=== PATIENT | female | born 1970 | race African-American/Black ===

== ENCOUNTER → 2016-09-17 | Outpatient (CLI) | payer BC ==
[2015-06-23 00:20] VITALS: BP 178/85
--- NOTE | 2016-09-17 10:13 | RAD ---
DATE: September 17, 2016 EXAM: MAMMO JOCE SCREENING BILATERAL HISTORY: Routine screening. COMPARISON: None. Baseline examination 46-year-old. TECHNIQUE: 2D digital CC and MLO views were obtained. 3D tomosynthesis imaging was performed in the CC and MLO projections. This study was interpreted with the benefit of Computerized Aided Detection (CAD). FINDINGS: The breast parenchyma is heterogeneously dense, category C, which may obscure small masses. There is no area of architectural distortion. There is a 5 mm nodule on right MLO tomosynthesis image 11, 7-cm from the nipple. This is lateral at the nipple line, 9:00 position. There are no suspicious groupings of microcalcifications IMPRESSION: Small nodule in the outer right breast for which ultrasound would be recommended. BI-RADS CATEGORY: 0 INCOMPLETE: NEEDS ADDITIONAL IMAGING EVALUATION/COMPARISON WITH PRIOR STUDIES RECOMMENDED FOLLOW-UP: ADD ADDITIONAL IMAGING PQRS compliance statement: Patient information was entered into a reminder system with a target due date for the next mammogram. Mammography is a sensitive method for finding small breast cancers, but it does not detect them all and is not a substitute for careful clinical examination. A negative mammogram does not negate a clinically suspicious finding and should not result in delay in biopsying a clinically suspicious abnormality. "Our facility is accredited by the [employer] Mammography Program."
== END | disposition home or self-care (01) ==
LOC: MAMMO 08:37
PROVIDERS: ATTEND Family Medicine
DX: Z12.31 Encounter for screening mammogram for malignant neoplasm of breast (principal)
CPT/HCPCS: 77063; G0202; 77067

== ENCOUNTER → 2016-09-24 | Outpatient (CLI) | payer BC ==
[2015-06-23 00:20] VITALS: BP 178/85
--- NOTE | 2016-09-24 10:01 | RAD ---
Right breast ultrasound, 09/24/2016: History: Breast nodule On the screening tomograms of 09/17/2016 a small smooth nodule was identified at approximately the 9:00 location. A targeted ultrasound exam of the right breast was performed from the 7:00 to 10:00 locations. Heterogeneous fibroglandular shadows are present. No cystic or solid breast mass is seen. No sonographic correlate for the mammographic finding was identified. IMPRESSION: The targeted right breast ultrasound did not demonstrate the small nodule seen on the mammograms. It has a smooth benign appearance mammographically. Mammographic surveillance beginning with 3-D right mammography in 6 months is suggested. BI-RADS 3-probably benign findings
== END | disposition home or self-care (01) ==
LOC: US 09:06
PROVIDERS: ATTEND Family Medicine
DX: R92.8 Other abnormal and inconclusive findings on diagnostic imaging of breast (principal)
CPT/HCPCS: 76641

== ENCOUNTER → 2017-03-27 | Outpatient (CLI) | payer BC ==
[2015-06-23 00:20] VITALS: BP 178/85
--- NOTE | 2017-03-27 10:20 | RAD ---
DATE: 03/27/2017 EXAM: MAMMO JOCE DIAG RT HISTORY: Follow-up breast nodule COMPARISON: 09/17/2016 This study was interpreted with the benefit of Computerized Aided Detection (CAD). The breast parenchyma is heterogeneously dense, which could reduce sensitivity of mammography. Breast parenchyma level C. FINDINGS: 2-D and 3-D tomosynthesis imaging of the right breast was performed. The tiny nodule seen posteriorly in the right breast on the oblique tomogram of the previous study is less clearly defined on the current exam. This opacity has not increased in size. No other unusual breast densities are seen. No suspicious microcalcifications are evident. IMPRESSION: Stable tiny right breast nodule. Follow-up bilateral 3-D mammograms in 6 months and then at yearly intervals is suggested. BI-RADS CATEGORY: 3 PROBABLY BENIGN FINDING(S)-SHORT INTERVAL FOLLOW-UP SUGGESTED RECOMMENDED FOLLOW-UP: 6M 6 MONTH FOLLOW-UP PQRS compliance statement: Patient information was entered into a reminder system with a target due date for the next mammogram. Mammography is a sensitive method for finding small breast cancers, but it does not detect them all and is not a substitute for careful clinical examination. A negative mammogram does not negate a clinically suspicious finding and should not result in delay in biopsying a clinically suspicious abnormality. "Our facility is accredited by the [employer] Mammography [employer]."
== END | disposition home or self-care (01) ==
LOC: MAMMO 09:22
PROVIDERS: ATTEND Family Medicine
DX: N63 Unspecified lump in breast (principal)
CPT/HCPCS: G0206; G0279; 77061; 77065

== ENCOUNTER → 2017-10-19 | Outpatient (CLI) | payer BC, OTHER ==
[2015-06-23 00:20] VITALS: BP 178/85
--- NOTE | 2017-10-19 13:27 | RAD ---
DATE: 10/19/2017 EXAM: MAMMO JOCE ANNA WOOAT, BREAST LEFT HISTORY: Follow-up right breast nodule COMPARISON: 03/27/2017, 09/17/2016 This study was interpreted with the benefit of Computerized Aided Detection (CAD). The breast parenchyma is heterogeneously dense, which could reduce sensitivity of mammography. Breast parenchyma level C. FINDINGS: 2-D and 3-D tomosynthesis imaging was performed in CC and MLO projections. No suspicious right breast nodule is currently seen. On left oblique tomogram image #41 a small, smooth 5 mm nodule is evident in the left breast just inferior and medial to the midline. In retrospect this was present on the 09/17/2016 study and measured 4 mm at that time. No other new or enlarging breast densities are seen. No suspicious microcalcifications are evident. Left breast ultrasound, 10/19/2017: A targeted ultrasound exam of the central aspect of the breast reveals heterogeneous fibroglandular shadows. No cystic or solid nodule is seen to correspond to the mammographic abnormality. IMPRESSION: 1. The previously seen small right breast nodule appears to resolved. 2. A small, smooth nodule is now identified centrally in the left breast with no sonographic correlate. Follow-up left mammography in 6 months and bilateral mammography at one year is suggested to evaluate stability. BI-RADS CATEGORY: 3 PROBABLY BENIGN FINDING(S)-SHORT INTERVAL FOLLOW-UP SUGGESTED RECOMMENDED FOLLOW-UP: 6M 6 MONTH FOLLOW-UP PQRS compliance statement: Patient information was entered into a reminder system with a target due date for the next mammogram. Mammography is a sensitive method for finding small breast cancers, but it does not detect them all and is not a substitute for careful clinical examination. A negative mammogram does not negate a clinically suspicious finding and should not result in delay in biopsying a clinically suspicious abnormality. "Our facility is accredited by the [employer] Mammography Program."
== END | disposition home or self-care (01) ==
LOC: MAMMO 10:56
PROVIDERS: ATTEND Family Medicine
DX: N63.20 Unspecified lump in the left breast, unspecified quadrant (principal)
CPT/HCPCS: 76641; 77066; G0279; 77062

== ENCOUNTER → 2018-06-18 | Outpatient (CLI) | payer BC ==
[2015-06-23 00:20] VITALS: BP 178/85
--- NOTE | 2018-06-18 16:09 | RAD ---
DATE: 06/18/2018 EXAM: DIGITAL DIAGNOSTIC LT HISTORY: Six-month follow-up for left breast abnormality seen. COMPARISON: Please mammogram from 10/19/2017. This study was interpreted with the benefit of Computerized Aided Detection (CAD). FINDINGS: Breast Density: HETERO The breast parenchyma Is heterogeneously dense, which could reduce sensitivity of mammography. Breast parenchyma level C. The skin and nipple are within normal limits. Redemonstrated is stable 5 mm round mass in the medial aspect of the left breast approximately 5 cm from the nipple on cc view. No new abnormality seen. No suspicious calcifications. IMPRESSION: Stable left medial breast abnormality as described above which showed no sonographic correlates on ultrasound exam from 10/19/2017.. BI-RADS CATEGORY: 3 PROBABLE BENIGN FINDING(S-SHORT INTERVAL FOLLOW-UP SUGGESTED RECOMMENDED FOLLOW-UP: 6M 6 MONTH FOLLOW-UP. Patient is due for bilateral mammogram in next 6 months. PQRS compliance statement: Patient information was entered into a reminder system with a target due date for the next mammogram. Mammography is a sensitive method for finding small breast cancers, but it does not detect them all and is not a substitute for careful clinical examination. A negative mammogram does not negate a clinically suspicious finding and should not result in delay in biopsying a clinically suspicious abnormality. "Our facility is accredited by the [employer] Mammography Program."
== END | disposition home or self-care (01) ==
LOC: MAMMO 15:11
PROVIDERS: ATTEND Family Medicine
DX: R92.8 Other abnormal and inconclusive findings on diagnostic imaging of breast (principal)
CPT/HCPCS: 77065